=== PATIENT | female | born 1995 | race Hispanic/Latino ===

== ENCOUNTER 2022-07-01 08:13 | Emergency (ER) | payer MEDICAID, OTHER ==
[~2022-07-01] VITALS: Ht 165.1 cm; Wt 84.8 kg
[2022-07-01 08:40] LABS: BASOPHILS % (AUTO) 0.1 % (0.0-5.0); EOSINOPHILS % (AUTO) 2.2 % (0.0-8.0); HEMATOCRIT 38.2 % (36-48); LYMPHOCYTES % (AUTO) 31.6 % (21.0-51.0); MEAN CORPUSCULAR HEMOGLOBIN 23.5 pg (27.0-33.0); MEAN CORPUSCULAR HGB CONC 30.4 g/dL (32.0-36.0); MEAN CORPUSCULAR VOLUME 77.5 fL (79-99); NEUTROPHILS % (AUTO) 54.8 % (40.0-77.0); PLATELET COUNT (AUTO) 319 K/uL (130-400); RED BLOOD CELL COUNT(AUTO) 4.93 MIL/uL (4.00-5.50); RED CELL DISTRIBUTION WIDTH 13.9 % (11.0-15.5); WHITE BLOOD COUNT (AUTO) 6.9 K/uL (4.8-10.8)
[2022-07-01 08:48] LABS: CREATININE 0.8 mg/dL (0.5-1.5); POTASSIUM 3.2 mmol/L (3.5-5.1)
[2022-07-01 08:54] LABS: ALBUMIN 3.6 g/dL (3.5-5.0); TOTAL PROTEIN, SERUM 7.6 g/dL (6.0-8.3)
[2022-07-01 08:54] LABS: HCG,QUALITATIVE URINE NEGATIVE (NEGATIVE)
[2022-07-01 08:56] LABS: APPEARANCE,URINE TURBID (CLEAR); BILIRUBIN,URINE NEGATIVE (NEGATIVE); COLOR,URINE YELLOW (YELLOW); GLUCOSE, URINE (UA) NEGATIVE (NEGATIVE); KETONES,URINE NEGATIVE (NEGATIVE); LEUKOCYTE ESTERASE ,URINE 500 Leu/uL (NEGATIVE); NITRATE,URINE NEGATIVE (NEGATIVE); PH,URINE 5.5 (5.0-8.0); PROTEIN,URINE 70 mg/dL (NEGATIVE); UROBILINOGEN,URINE 3 mg/dL (0.2-1.0)
[2022-07-01] MEDS ORDERED: SOLU-MEDROL 125MG VIAL IM ONE (09:00)
[2022-07-01 09:08] LABS: BACTERIA,URINE FEW /HPF (None Seen); MUCUS,URINE MANY LPF (None Seen); SQUAMOUS EPITHELIAL CELL,UR MANY /HPF (0-2); WBC,URINE TNTC /HPF (0-1)
[2022-07-01] MEDS ORDERED: ACET-66 PO (09:19)
[2022-07-01] MEDS ORDERED: CEPH500B PO (09:19)
[2022-07-01] MEDS ORDERED: CEPHALEXIN 500 MG CAPSULE PO ONE (09:30)
[2022-07-01 09:31] VITALS: BP 124/72
== END 2022-07-01 10:34 | disposition home or self-care (01) ==
LOC: EDH 08:13
DX: N39.0 Urinary tract infection, site not specified (principal); R07.89 Other chest pain; Z79.52 Long term (current) use of systemic steroids
CPT/HCPCS: 99285; 71045; 84484; 80053; 85025; 87077; 87088; 87186; 81001; 81025; 36415; 96372; 93005; J2930

== ENCOUNTER 2022-10-06 15:38 | Emergency (ER) | payer MEDICAID ==
[~2022-10-06] VITALS: Ht 165.1 cm; Wt 79.4 kg
[~2022-10-06 15:38] MED LIST: ACET-66 PO; CEPH500B PO
[2022-10-06 16:28] LABS: BASOPHILS % (AUTO) 0.2 % (0.0-5.0); EOSINOPHILS % (AUTO) 0.4 % (0.0-8.0); HEMATOCRIT 35.2 % (36-48); MEAN CORPUSCULAR HEMOGLOBIN 22.4 pg (27.0-33.0); MEAN CORPUSCULAR HGB CONC 30.4 g/dL (32.0-36.0); MEAN CORPUSCULAR VOLUME 73.8 fL (79-99); MONOCYTES % (AUTO) 6.1 % (3.0-13.0); PLATELET COUNT (AUTO) 302 K/uL (130-400); RED BLOOD CELL COUNT(AUTO) 4.77 MIL/uL (4.00-5.50); RED CELL DISTRIBUTION WIDTH 15.8 % (11.0-15.5); WHITE BLOOD COUNT (AUTO) 9.1 K/uL (4.8-10.8)
[2022-10-06 16:37] LABS: CREATININE 0.7 mg/dL (0.5-1.5); POTASSIUM 4.1 mmol/L (3.5-5.1)
[2022-10-06 16:41] LABS: ALBUMIN 3.3 g/dL (3.5-5.0); TOTAL PROTEIN, SERUM 7.4 g/dL (6.0-8.3)
[2022-10-06 16:59] LABS: APPEARANCE,URINE CLEAR (CLEAR); BILIRUBIN,URINE NEGATIVE (NEGATIVE); COLOR,URINE YELLOW (YELLOW); GLUCOSE, URINE (UA) NEGATIVE (NEGATIVE); KETONES,URINE NEGATIVE (NEGATIVE); LEUKOCYTE ESTERASE ,URINE 75 Leu/uL (NEGATIVE); NITRATE,URINE 2+ (NEGATIVE); OCCULT BLOOD,URINE NEGATIVE (NEGATIVE); PH,URINE 5.5 (5.0-8.0); PROTEIN,URINE 20 mg/dL (NEGATIVE); UROBILINOGEN,URINE 0.2 mg/dL (0.2-1.0)
[2022-10-06 17:04] LABS: HCG,QUALITATIVE URINE POSITIVE (NEGATIVE)
[2022-10-06 17:14] LABS: BACTERIA,URINE MOD /HPF (None Seen); MUCUS,URINE FEW LPF (None Seen); RBC,URINE 0-1 /HPF (0-1); SQUAMOUS EPITHELIAL CELL,UR FEW /HPF (0-2)
[2022-10-06] MEDS ORDERED: CEFTRIAXONE 1G VIAL IVP ONE (18:00)
[2022-10-06] MEDS ORDERED: LIDOCAINE HCL 1% 20 ML VIAL IM SCH (18:00)
[2022-10-06] MEDS ORDERED: CEPH500B PO (18:25)
[2022-10-06 18:48] VITALS: BP 123/78
== END 2022-10-06 18:55 | disposition home or self-care (01) ==
LOC: EDH 15:38
DX: O23.40 Unspecified infection of urinary tract in pregnancy, unspecified trimester (principal); N39.0 Urinary tract infection, site not specified; Z3A.00 Weeks of gestation of pregnancy not specified; Z79.899 Other long term (current) drug therapy
CPT/HCPCS: 99284; 96374; 80053; 85025; 87077; 87088; 87186; 81001; 81025; 36415; 96372; J0696

== ENCOUNTER → 2025-07-02 | Emergency (ER) | payer BC, MEDICAID ==
[~2025-07-02] VITALS: Ht 165.1 cm; Wt 79.4 kg
[2025-07-02 12:16] VITALS: BP 117/81; PULSE 77; RESP 16; TEMP 98.2
--- NOTE | 2025-07-02 12:27 | ERN ---
ED Note History of Present Illness Stated Complaint: MIGRAINE, N/V. 11 WEEKS Chief Complaint: Headache Time Seen by MD: 12:25 Dictation: PATIENT IS A 30-YEAR-OLD FEMALE WHO IS 11 WEEKS COMING IN COMPLAINING TODAY OF GENERALIZED HEADACHE ONSET YESTERDAY WITH NAUSEA VOMITING X2. NO PELVIC PAIN NO VAGINAL PAIN NO FLANK PAIN. SHE STATES SHE TOOK TYLENOL YESTERDAY, PATIENT OF DR. ELENI HIGUERA IN HIS NOT SEEN HIM IN THE LAST SEVERAL DAYS. NIH IS 0. Allergies: Coded Allergies: No Known Allergies (Unverified Allergy, Unknown, 07/01/22) Home Meds Active Scripts Cephalexin Monohydrate (Keflex) 500 Mg Cap, 500 MG PO TID for 7 Days, #21 CAP Prov:SUE LACEY MD 10/06/22 Acetaminophen (Acetaminophen) 500 Mg Tablet, 1000 MG PO QID, #50 TAB Prov:PA VILLALTA MD 07/01/22 Cephalexin Monohydrate (Keflex) 500 Mg Cap, 500 MG PO BID for 5 Days, #10 CAP Prov:PA VILLALTA MD 07/01/22 Past Medical History Past Medical History: Migraines Surgical History: Bariatric Surgery Social History: Negative, Lives with family History: Not Applicable LMP: Apr 09, 2025 : 5 Para: 3 Aborts: 1 RN Note Reviewed/Agreed w/PFSH: Yes Review of System Dictation CONSTITUTIONAL: NEGATIVE EXCEPT FOR HPI HEAD/FACE: NEGATIVE EXCEPT FOR HPI EENT: NEGATIVE EXCEPT FOR HPI RESPIRATORY: NEGATIVE EXCEPT FOR HPI GASTROINTESTINAL/ABDOMINAL: NEGATIVE EXCEPT FOR HPI NAUSEA VOMITING GENITOURINARY: NEGATIVE EXCEPT FOR HPI MUSCULOSKELETAL: NEGATIVE EXCEPT FOR HPI INTEGUMENTARY: NEGATIVE EXCEPT FOR HPI NEUROLOGICAL/PSYCH: NEGATIVE EXCEPT FOR HPI GENERALIZED HEADACHE HEMATOLOGIC/LYMPHATIC: NEGATIVE EXCEPT FOR HPI ALL SYSTEMS NEGATIVE, EXCEPT NOTED ABOVE. 13 POINT REVIEW OF SYSTEMS ASSESSED AND ALL NEGATIVE EXCEPT FOR ABOVE. Initial Vital Sign VS Vital Signs Date Time Temp Pulse Resp B/P (MAP) Pulse Ox O2 Delivery O2 Flow Rate FiO2 07/02/25 12:16 98.2 77 16 117/81 99 Room Air 0 Physical Exam Dictation VITAL SIGNS REVIEWED GENERAL APPEARANCE: ALERT, ORIENTED X 3, NO ACUTE DISTRESS, WELL DEVELOPED, NOURISHED. HEAD AND FACE: NON-TRAUMATIC. EYES: PERRL, PINK CONJUNCTIVAS, EYELID NO TRAUMA, ANTERIOR CHAMBER WITH ARCUS SENILIS. EARS: PINNAS INTACT AND NO SIGNS OF TRAUMA OR ERYTHEMA EAR CANALS CLEAR AND NO DISCHARGE TM NO ERYTHEMA NOSE: NO DISCHARGE, NO BLEEDING. OROPHARYNX: MOUTH NORMAL, TONGUE PINK, PHARYNX CLEAR,NO ERYTHEMA, TONSILS NO EXUDATES, NO ABSCESSES NOTED, MUCOUS MEMBRANE MOIST NECK: SUPPLE, NON-TENDER, NO THYROMEGALY, NO MASSES, NO JVD, NO BRUITS BREAST:DEFERRED CHEST:NO TENDERNESS, NO CREPITUS, NO PARADOXICAL MOVEMENT, NO RETRACTIONS LUNGS:CLEAR, WELL-VENTILATED, SYMMETRIC, NO RALES, NO WHEEZING, NO RHONCHI, NO STRIDOR, GOOD BREATH SOUNDS BILATERALLY HEART: REGULAR RATE, REGULAR RHYTHM, NO MURMUR, NO GALLOPS VASCULAR: NO PERIPHERAL EDEMA, ABDOMEN: SOFT, POSITIVE BOWEL SOUNDS, NONDISTENDED, NO GUARDING, NONTENDER, NO REBOUND, NO MASSES NO HEPATOMEGALY, NO SPLENOMEGALY, NO FERNANDES'S SIGN, NO HERNIAS. RECTAL: DEFERRED GENITAL: DEFERRED NEUROLOGICAL: NORMAL SPEECH, MOTOR FUNCTION INTACT, SENSORY FUNCTION INTACT NIH IS 0 MUSCULOSKELETAL: NECK NONTENDER, FULL RANGE OF MOTION, BACK NONTENDER, FULL RANGE OF MOTION, EXTREMITIES: NONTENDER, FULL RANGE OF MOTION SKIN: COLOR PINK, DRY, NO TURGOR, NO RASH, NO LACERATIONS, NO ABRASIONS, NO CONTUSIONS. LYMPHATIC: DEFERRED Results (Laboratory/Radiology) Labs Reviewed?: Yes ED Course ED Course Orders Procedure Category Date Status Time *Nursing CPOE 07/02/25 Transmitted Communication: 12:26 Acetaminophen 500mg PHA 07/02/25 Complete Tab (Tylenol 500mg T 12:30 Ondansetron Odt 4mg PHA 07/02/25 Complete Tab (Zofran 4mg Odt) 12:30 Current Medications Medications (Trade) Dose Ordered Sig/Yu Route PRN Reason Start Time Stop Time Status Last Admin Dose Admin Acetaminophen (TYLenol 500MG TAB) 1,000 mg ONCE ONCE PO 07/02/25 12:30 07/02/25 12:31 DC Ondansetron HCl (zoFRAN 4MG ODT) 4 mg ONCE ONCE SL 07/02/25 12:30 07/02/25 12:31 DC Vital Signs Date Time Temp Pulse Resp B/P (MAP) Pulse Ox O2 Delivery O2 Flow Rate FiO2 07/02/25 12:16 98.2 77 16 117/81 99 Room Air 0 Medical Decision Making [facility] 1645/PATIENT LEFT THE EMERGENCY ROOM AGAINST MEDICAL ADVICE AND DID NOT SIGN OUT. SHE DID NOT INFORM STAFF SHE WAS LEAVING. DX & DISP Disposition: AMA Departure Impression: Primary Impression: Acute headache Additional Impressions: Nausea & vomiting, Condition: Stable Referrals: RADHA WYATT MD (PCP) I have reviewed the case, and I agree with, Diagnosis and Plan DEB DUBON MAORI LIAISON ADVISER Jul 02, 2025 12:27
--- NOTE | 2025-07-02 16:42 | NUR ---
WENT TO GET PT INTO [facility] AND CALLED PT TWICE FROM [facility] WITH NO ANSWER. WENT 30 MINS AFTER TO CALL PT AND STILL NO ANSWER. CHECKED WITH SECURITY AND PT COULD NOT BE FOUND IN FACILITY. CHARGE NURSE AND PHYSICIAN MADE AWARE.
== END | disposition left against medical advice (07) ==
LOC: EDH 12:12
DX: O99.351 Diseases of the nervous system complicating pregnancy, first trimester (principal); G43.909 Migraine, unspecified, not intractable, without status migrainosus; O21.9 Vomiting of pregnancy, unspecified; Z3A.11 11 weeks gestation of pregnancy
CPT/HCPCS: 99282